=== PATIENT | female | born 1985 ===

== ENCOUNTER 2018-10-05 14:42 | Emergency (ER) | payer BC ==
[2018-10-05 14:46] VITALS: BP 134/77; PULSE 116; RESP 16; TEMP 98.4; O2SAT 100
--- NOTE | 2018-10-05 15:34 | ED PDOC ---
HPI: Female Pain Time Seen by Provider: 10/05/18 15:08 Chief Complaint (Nursing): Female Genitourinary Chief Complaint (Provider): Vaginal bleeding History Per: Patient History/Exam Limitations: no limitations Additional Complaint(s): Pt presents with c/o vaginal spotting X 1 week, today had pad full of bright red blood, no clots, associated with lower abdominal cramping. + care. Abnormal Vaginal Bleeding: Yes Last Menstral Period: 08/24/18 : 2 Para: 1 Past Medical History Reviewed: Nursing Documentation, Vital Signs Vital Signs: Last Vital Signs Temp 98.4 F 10/05/18 14:45 Pulse 116 H 10/05/18 14:45 Resp 16 10/05/18 14:45 BP 134/77 10/05/18 14:45 Pulse Ox 100 10/05/18 14:45 - Medical History PMH: No Chronic Diseases - Family History Family History: States: Unknown Family Hx - Living Arrangements Living Arrangements: With Family - Social History Alcohol: None - Home Medications Home Medications: Ambulatory Orders Medication Instructions Recorded Nitrofurantoin Macrocrystals 100 mg PO BID #9 cap 10/05/18 [Macrobid] - Allergies Allergies/Adverse Reactions: Allergies Allergy/AdvReac Type Severity Reaction Status Date / Time No Known Allergies Allergy Verified 10/05/18 14:48 Review of Systems Constitutional: Negative for: Fever, Chills Cardiovascular: Negative for: Chest Pain Respiratory: Negative for: Cough, Shortness of Breath Gastrointestinal: Positive for: Abdominal Pain. Negative for: Nausea, Vomiting, Diarrhea Genitourinary Female: Positive for: Vaginal Bleeding. Negative for: Dysuria Neurological: Negative for: Headache Physical Exam - Reviewed Nursing Documentation Reviewed: Yes Vital Signs Reviewed: Yes - Physical Exam Appears: Positive for: Well, No Acute Distress Skin: Positive for: Normal Color, Warm, Dry Eye Exam: Positive for: Normal appearance, EOMI, PERRL Cardiovascular/Chest: Positive for: Regular Rate, Rhythm Respiratory: Positive for: Normal Breath Sounds Gastrointestinal/Abdominal: Positive for: Bowel Sounds, Soft, Tenderness (Lower suprapubic). Negative for: Guarding, Rebound Back: Positive for: Normal Inspection Neurological/Psych: Positive for: Awake, Alert, Oriented - Laboratory Results Result Diagrams: 10/05/18 16:30 10/05/18 16:30 - ECG O2 Sat by Pulse Oximetry: 100 Medical Decision Making Medical Decision Makin yo female with vaginal bleeding. - labs - pelvic ultrasound Accession No. : [id number] Patient Name / ID : HÉCTOR FERRER / [id number] Exam Date : 10/05/2018 15:39:51 ( Approved ) Study Comment : Sex / Age : F / 33Y Creator : Gerardo Cárdenas MD Dictator : Gerardo Cárdenas MD Development Professional : [employer] Winder : Gerardo Cárdenas MD Approver2 : Report Date : 10/05/2018 16:53:06 My Comment : Date of service: 10/05/2018 PROCEDURE: First trimester ultrasound HISTORY: Vaginal bleeding COMPARISON: None TECHNIQUE: Standard protocol for this study/examination. FINDINGS: LMP: 08/24/2018 Prior examinations from the current : None TECHNIQUE: Real-time 2D imaging, duplex and color Doppler. FINDINGS: Cardiac activity: Present Rate: 183 BPM Measurements: [place] rump length: 0.29 cm Gestational age based on CRL 5 weeks 6 days Gestational age 5 weeks 3 days. Based on gestational sac measurement 1.23 cm Gestational age derived from LMP: 6 weeks KERI based on LMP: 05/31/2019 KERI based on biometry: 06/02/2019. Gestational concordance documented Yolk sac identified Cervix: No Cervical abnormalities: Negative examination for cervical dilatation or effacement. Closed cervix measuring 3.23 cm Subchorionic hemorrhage: None UTERUS: 5.6 x 6.2 x 9.4 Cm. ADNEXA: Right: 3.4 x 2.3 Cm. Multiple subcentimeter follicles. Normal Doppler arterial waveform documented. Left: 1.5 x 3.1 cm. Normal Doppler arterial waveform documented Fluid in the cul-de-sac: Trace free fluid identified in the pelvis/cul de sac. IMPRESSION: Five weeks 5 days live intrauterine gestation. Gestational concordance documented. Disposition - Clinical Impression Clinical Impression: Threatened , UTI in - Disposition Disposition: Routine/Home Disposition Time: 17:25 Condition: STABLE Additional Instructions: FOLLOW-UP WITH [facility] WITHIN 2 DAYS FOR REEVALUATION. Prescriptions: Nitrofurantoin Macrocrystals [Macrobid] 100 mg PO BID #9 cap Instructions: Threatened Miscarriage, Urinary Tract Infection, Adult (DC) Forms: [employer] ([place]i)
[2018-10-05 16:32] LABS: SQUAMOUS EPITHIAL 7 /hpf (0-5); URINE BACTERIA RARE (<OCC); URINE BILIRUBIN NEGATIVE (NEGATIVE); URINE BLOOD LARGE (NEGATIVE); URINE CLARITY SLIGHTY-CLOUDY (Clear); URINE COLOR YELLOW (YELLOW); URINE GLUCOSE (UA) NEG (NEGATIVE); URINE LEUKOCYTE ESTERASE MOD Leu/uL (Negative); URINE PROTEIN NEGATIVE (NEGATIVE); URINE UROBILINOGEN 0.2-1.0 mg/dL (0.2-1.0)
[2018-10-05 16:49] LABS: BASO % 0.6 % (0.0-2.0); EOS # 0.2 K/uL (0.0-0.7); EOS % 2.6 % (0.0-4.0); HEMOGLOBIN 11.3 g/dL (12.0-16.0); LYMPH # 1.4 K/uL (1.0-4.3); LYMPH % 24.1 % (20.0-40.0); MEAN CELL VOLUME 94.3 fl (81.0-99.0); MEAN CORPUSCULAR HEMOGLOBIN 31.6 pg (27.0-31.0); MEAN CORPUSCULAR HGB CONC 33.5 g/dL (33.0-37.0); MEAN PLATELET VOLUME 8.6 fl (7.2-11.7); MONO # 0.4 K/uL (0.0-0.8); MONO % 7.3 % (0.0-10.0); NEUT # 3.9 K/uL (1.8-7.0); NEUT % 65.4 % (50.0-75.0); NRBC % 0.2 % (0.0-0.0); RBC 3.57 Mil/uL (3.80-5.20); RED CELL DISTRIBUTION WIDTH 13.6 % (11.5-14.5)
--- NOTE | 2018-10-05 16:56 | US ---
Date of service: 10/05/2018 PROCEDURE: First trimester ultrasound HISTORY: Vaginal bleeding COMPARISON: None TECHNIQUE: Standard protocol for this study/examination. FINDINGS: LMP: 08/24/2018 Prior examinations from the current : None TECHNIQUE: Real-time 2D imaging, duplex and color Doppler. FINDINGS: Cardiac activity: Present Rate: 183 BPM Measurements: [place] rump length: 0.29 cm Gestational age based on CRL 5 weeks 6 days Gestational age 5 weeks 3 days. Based on gestational sac measurement 1.23 cm Gestational age derived from LMP: 6 weeks KERI based on LMP: 05/31/2019 KERI based on biometry: 06/02/2019. Gestational concordance documented Yolk sac identified Cervix: No Cervical abnormalities: Negative examination for cervical dilatation or effacement. Closed cervix measuring 3.23 cm Subchorionic hemorrhage: None UTERUS: 5.6 x 6.2 x 9.4 Cm. ADNEXA: Right: 3.4 x 2.3 Cm. Multiple subcentimeter follicles. Normal Doppler arterial waveform documented. Left: 1.5 x 3.1 cm. Normal Doppler arterial waveform documented Fluid in the cul-de-sac: Trace free fluid identified in the pelvis/cul de sac. IMPRESSION: Five weeks 5 days live intrauterine gestation. Gestational concordance documented.
[2018-10-05 17:07] LABS: ALB/GLOB RATIO 1.2 (1.0-2.1); ALBUMIN 4.2 g/dL (3.5-5.0); ALT/SGPT 30 U/L (9-52); AST/SGOT 27 U/L (14-36); BLOOD UREA NITROGEN 13 mg/dl (7-17); CALCIUM 9.3 mg/dL (8.4-10.2); GFR NON-AFRICAN AMERICAN > 60
== END 2018-10-05 17:25 | disposition home or self-care (01) ==
LOC: H.ER 14:42
DX: O20.0 Threatened abortion (principal); O23.40 Unspecified infection of urinary tract in pregnancy, unspecified trimester; N83.201 Unspecified ovarian cyst, right side